=== PATIENT | female | born 1950 | race Caucasian/White ===

== ENCOUNTER 2019-06-12 11:55 | Emergency (ER) | payer OTHER ==
[2019-06-12 12:14] VITALS: BP 157/82
--- NOTE | 2019-06-12 12:51 | UC ---
General HPI - HPI Summary HPI Summary: 69-year-old female who states that she is been feeling mildly tired and achy lately with a mild dull headache. She states she's only had to take aspirin one time for the headache. She did not get a flu shot. She states she "never gets the flu". She thought because she was feeling this way this morning she wanted to increase her one half tablet of blood pressure medicine to a full tablet. She gave her doctor a call and they said they will see her in the office in September. The patient was not satisfied with this and they rescheduled her to June 27. She denies any difficulty breathing, no chest pain. She states at the end of the day her feet and ankles will be swollen but then in the morning there are no longer swollen. She came here because she wants my permission to increase her blood pressure medicine to one whole tablet. Her blood pressure today was 157/82. She does not take her blood pressure regularly at home. She has no history of CHF. - History of Current Complaint Chief Complaint: UCGeneralIllness Stated Complaint: MED ISSUE, HEADACHE,TIRED,ANKLE SWELLING Time Seen by Provider: 06/12/19 12:36 Hx Obtained From: Patient Onset/Duration: Still Present Timing: Constant Onset Severity: Mild Current Severity: Mild - Patient states this is not the worst headache of her life and it's more of a dull headache. She denies any weakness. Pain Intensity: 0 - Allergy/Home Medications Allergies/Adverse Reactions: Allergies Allergy/AdvReac Type Severity Reaction Status Date / Time No Known Allergies Allergy Verified 06/12/19 12:15 Home Medications: Home Medications Chlorthalidone TAB* [Hygroton TAB*] 1 tab PO DAILY 06/12/19 [History Confirmed 06/12/19] [place]-3 Fatty Acids (Nf) [Fish Oil (NF)] 1 cap PO DAILY 06/12/19 [History Confirmed 06/12/19] PMH/Surg Hx/FS Hx/Imm Hx Previously Healthy: Yes Cardiovascular History: Hypertension - Surgical History Surgical History: None - Family History Known Family History: Positive: Unknown - Social History Occupation: Employed Full-time Lives: With Family Alcohol Use: Daily Substance Use Type: None Smoking Status (MU): Never Smoked Tobacco Review of Systems All Other Systems Reviewed And Are Negative: Yes Constitutional: Positive: Fatigue Neurological/Mental Status: Positive: Headache - Patient states she's had a mild headache over the past few days with feelings of achiness and fatigue. She 's only taken aspirin one time. This is not the worst headache she has ever had. She denies any weakness. Is Patient Immunocompromised?: No Physical Exam Triage Information Reviewed: Yes Appearance: Well-Appearing, No Pain Distress, Well-Nourished, Obese Vital Signs: Initial Vital Signs Temp 98.2 F 06/12/19 12:05 Pulse 85 06/12/19 12:05 Resp 18 06/12/19 12:05 BP 157/82 06/12/19 12:05 Pulse Ox 96 06/12/19 12:05 Vital Signs Reviewed: Yes Eyes: Positive: Conjunctiva Clear - PERRLA, EOMI ENT: Positive: Hearing grossly normal, Pharynx normal, TMs normal, Uvula midline Neck: Positive: Supple, No Lymphadenopathy Respiratory: Positive: Lungs clear, Normal breath sounds, No respiratory distress, No accessory muscle use Cardiovascular: Positive: RRR, No Murmur, Pulses Normal, Brisk Capillary Refill Musculoskeletal Exam: Normal Musculoskeletal: Positive: Edema @ - Very minimal edema to lower leg on very firm palpation., Other: - Patient has a "hammertoe" on her second toe with a callus formation however there is no evidence of cellulitis or infection. Neurological Exam: Normal Neurological: Positive: Other: - Cranial nerves II through XII are intact, good arm strength against resistance bilaterally. Psychological Exam: Normal Skin: Positive: Other - See above notes. Course/Dx - Course Course Of Treatment: The patient is comfortable here. We had a long discussion about seeing a pipelaying fitter for the callus on her hammertoe which is causing a lot of discomfort for her walking. It's not infected at this point in time. She has gone to a pipelaying fitter but they have not treated that and she is unable to find shoes that are comfortable that do not rub against the callus and cause irritation and pain. We discussed low-sodium diet. We also discussed taking her blood pressure daily using a wrist blood pressure machine and documenting that for her primary care provider. I advised her not to increase her blood pressure medicine unless her physician instructs her to do so. I encouraged her to keep the June 27 appointment. She is attempting to walk to lose weight however because of the foot callus that has been interfering with her ability to walk without pain. The patient basically needed a lot of reassurance. - Diagnoses Provider Diagnosis: Elevated blood pressure reading with diagnosis of hypertension, Callus of foot Discharge ED - Sign-Out/Discharge Documenting (check all that apply): Patient Departure All imaging exams completed and their final reports reviewed: No Studies - Discharge Plan Condition: Good Disposition: HOME Patient Education Materials: DASH Eating Plan (ED), Hypertension in the Older Adult (ED) Referrals: Fawn Aguilar MD [Primary Care Provider] - Additional Instructions: Avoid foods that are high in sodium. Continue your present medications. Follow -up with your primary care provider as scheduled. Follow-up with the pipelaying fitter as we discussed. Purchase a blood pressure machine and take your blood pressure regularly and documented that for your primary care provider. Elevate your feet as much as possible. If you develop any chest pain, difficulty breathing or any worsening symptoms you are to go to the emergency room - Billing Disposition and Condition Condition: GOOD Disposition: Home
== END 2019-06-12 13:11 | disposition home or self-care (01) ==
LOC: UCEAST 11:55
DX: I10 Essential (primary) hypertension (principal); L84 Corns and callosities; R51 Headache; R53.83 Other fatigue; M20.40 Other hammer toe(s) (acquired), unspecified foot
CPT/HCPCS: 99211; G0463